=== PATIENT | female | born 1960 | race Caucasian/White ===

== ENCOUNTER 2024-03-17 13:22 | Outpatient (CLI) | payer BC | END 2024-03-17 13:23 | disposition home or self-care (01) | LOC: CSHMRI 13:22 | PROVIDERS: ATTEND Specialist | DX: M48.062 Spinal stenosis, lumbar region with neurogenic claudication (principal); Z98.890 Other specified postprocedural states; M47.816 Spondylosis without myelopathy or radiculopathy, lumbar region | CPT/HCPCS: 72148 ==

== ENCOUNTER 2024-04-23 08:15 | Outpatient (CLI) | payer BC | END 2024-04-23 08:16 | disposition home or self-care (01) | LOC: CSHMRI 08:15 | PROVIDERS: ATTEND Nurse Practitioner Family | DX: M47.22 Other spondylosis with radiculopathy, cervical region (principal); Z98.1 Arthrodesis status; Z98.890 Other specified postprocedural states; G95.89 Other specified diseases of spinal cord; M48.02 Spinal stenosis, cervical region | CPT/HCPCS: 72141 ==